=== PATIENT | male | born 1995 | race Caucasian/White ===

== ENCOUNTER 2024-12-19 16:38 | Emergency (ER) | payer OTHER ==
[~2024-12-19] VITALS: Ht 167.6 cm; Wt 75.3 kg
[2024-12-19] MEDS ORDERED: DIATR MEGLU/DIATRIZOATE SODIUM 120 ML BOTTLE ONE (17:03)
[2024-12-19 17:10] LABS: BASOPHILS # (AUTO) 0.1 K/UL (0.0-0.2); BASOPHILS % (AUTO) 0.9 % (0.0-2.0); EOSINOPHILS # (AUTO) 0.1 K/uL (0.0-0.7); EOSINOPHILS % (AUTO) 1.9 % (0.0-7.0); HEMATOCRIT 46.8 % (36.7-47.1); HEMOGLOBIN 15.1 g/dL (12.5-16.3); LYMPHOCYTES # (AUTO) 1.9 K/uL (0.8-4.8); LYMPHOCYTES % (AUTO) 29.8 % (20.5-51.5); MEAN CORPUSCULAR HEMOGLOBIN 30.5 uug (23.8-33.4); MEAN CORPUSCULAR HGB CONC 32 g/dL (32.5-36.3); MEAN CORPUSCULAR VOLUME 94.3 fL (73.0-96.2); MONOCYTES # (AUTO) 0.5 K/uL (0.1-1.30); MONOCYTES % (AUTO) 7.4 % (0.0-11.0); NEUTROPHILS # (AUTO) 3.8 K/uL (1.8-8.9); PLATELET COUNT (AUTO) 256 K/uL (152-348); RED BLOOD CELL COUNT(AUTO) 4.96 MIL/uL (4.06-5.63); RED CELL DISTRIBUTION WIDTH 14.3 % (12.1-16.2); WHITE BLOOD COUNT (AUTO) 6.4 K/uL (3.6-10.2)
[2024-12-19] MEDS ORDERED: MELO-107 PO (17:12)
[2024-12-19] MEDS: IV NS 1000 ML 1,000 ML IV PRN (17:12)
[2024-12-19] MEDS ORDERED: USTE90DI SUBCUT (17:12)
[2024-12-19] MEDS ORDERED: AMPH10CA8 PO (17:12)
[2024-12-19] MEDS ORDERED: METH10TA4 PO (17:12)
[2024-12-19 17:13] LABS: DIFFERENTIAL COMMENT 1
[2024-12-19 17:22] LABS: ALBUMIN 4.1 g/dL (3.4-5.0); BILIRUBIN,DIRECT 0.2 mg/dL (0.0-0.2); BILIRUBIN,TOTAL 0.6 mg/dL (0.2-1.0); CALCIUM 9.6 mg/dL (8.5-10.1); CREATININE 1.2 mg/dL (0.6-1.3); TOTAL PROTEIN, SERUM 7.9 g/dL (6.4-8.2)
[2024-12-19] MEDS ORDERED: PANTOPRAZOLE SODIUM 40 MG VIAL ONE (18:34)
[2024-12-19] MEDS ORDERED: METOCLOPRAMIDE HCL 10 MG/2 ML VIAL ONE (18:34)
[2024-12-19] MEDS: PANTOPRAZOLE SODIUM IV 40 MG in IV DEXTROSE 5% 100 ML IV ONE (19:04)
[2024-12-19] MEDS: METOCLOPRAMIDE HCL 10 MG/2 ML VIAL IV ONE (19:04)
[2024-12-19 19:05] VITALS: O2SAT 100
[2024-12-19] MEDS ORDERED: IV D5 1/2 NS 1000 ML 1,000 ML IV PRN (20:15)
[2024-12-19] MEDS ORDERED: REMEDY ESSENTIAL ZINC PASTE 113 GM TP PRN (20:15)
[2024-12-19] MEDS ORDERED: MAGNESIUM HYDROXIDE 30 ML LIQUID UDC PO PRN (20:15)
[2024-12-19] MEDS ORDERED: ONDANSETRON 4 MG/2 ML VIAL IV PRN (20:15)
[2024-12-19] MEDS ORDERED: ACETAMINOPHEN 325 MG TABLET PO PRN (20:15)
[2024-12-20] MEDS ORDERED: PANTOPRAZOLE SODIUM 40 MG VIAL IV SCH (09:00)
== END 2024-12-19 20:36 | disposition left against medical advice (07) ==
LOC: ER 16:38
DX: K22.6 Gastro-esophageal laceration-hemorrhage syndrome (principal); R07.9 Chest pain, unspecified; K58.9 Irritable bowel syndrome, unspecified; Z87.19 Personal history of other diseases of the digestive system; Z87.09 Personal history of other diseases of the respiratory system
CPT/HCPCS: 99285; 96365; 71250; 96361; 96375; 80076; 80048; 83690; 85025; 85730; 36415; 93005; J2765; J2470 ×2; Q9963; J7040; A4606; A4663